=== PATIENT | male | born 1960 | race Asian ===

== ENCOUNTER 2022-02-13 20:07 | Emergency (ER) | payer OTHER ==
[~2022-02-13] VITALS: Ht 170.2 cm; Wt 117.9 kg
[2022-02-13 20:20] VITALS: BP_SYST 133
--- NOTE | 2022-02-13 20:26 | NUR ---
Placed in room 7 . Placed on hospital monitor, blood pressure machine and pulse oximeter. To gown for exam. Side rails up. Report given to Alyssa HOUSTON.
--- NOTE | 2022-02-13 20:30 | NUR ---
Pt brought self in from home due to c/o bright red rectal bleeding. Pt was seen last night in [facility] ER for same complaint. Pt reports history of hemorrhoids. Denies any pain/discomfort.
--- NOTE | 2022-02-13 20:40 | NUR ---
ENA Lowery at bedside examining patient.
[2022-02-13] MEDS ORDERED: NACL 0.9% 1,000 ML IV ONE (20:45)
[2022-02-13] MEDS ORDERED: IOHEXOL 350 mgI/mL, 150 ML INFUS..BTL IV ONE (20:47)
[2022-02-13] MEDS ORDERED: ANURH RC (21:09)
--- NOTE | 2022-02-13 21:50 | NUR ---
Patient given written and verbal discharge instructions and verbalizes understanding. ER MD discussed with patient the results and treatment provided. Patient in stable condition. ID arm band removed. Rx sent to pharmacy of choice. Patient educated on pain management and to follow up with PMD. Opportunity for questions provided and answered. Medication side effect fact sheet provided.
[2022-02-13 21:51] VITALS: BP_SYST 137
== END 2022-02-13 21:50 | disposition home or self-care (01) ==
LOC: SED 20:07
DX: K92.1 Melena (principal); Z79.899 Other long term (current) drug therapy
CPT/HCPCS: 99283; Q9967